=== PATIENT | female | born 1995 | race Two or more races ===

== ENCOUNTER 2023-01-21 13:06 | Emergency (ER) | payer BC, MEDICAID ==
[~2023-01-21] VITALS: Ht 170.2 cm; Wt 101.1 kg
[2023-01-21 13:51] VITALS: BP 142/80
[2023-01-21] MEDS ORDERED: TETANUS-DIPTH-ACEL PERTUSSIS 0.5ML SYR Tdap IM ONE (14:15)
[2023-01-21] MEDS ORDERED: ACETAMINOPHEN 500 MG TAB PO ONE (14:15)
[2023-01-21] MEDS ORDERED: AUG875T PO (14:38)
[2023-01-21] MEDS ORDERED: IBUP-1456 PO (14:38)
== END 2023-01-21 14:48 | disposition home or self-care (01) ==
LOC: ER 13:06
DX: S31.813A Puncture wound without foreign body of right buttock, initial encounter (principal); W54.0XXA Bitten by dog, initial encounter; Y93.89 Activity, other specified; Y92.89 Other specified places as the place of occurrence of the external cause; Y99.8 Other external cause status
CPT/HCPCS: 90471; 90715